=== PATIENT | male | born 1950 | race Caucasian/White ===

== ENCOUNTER 2020-01-10 08:14 | Outpatient (CLI) | payer MEDICARE ==
[2020-01-10] MEDS ORDERED: ASPI81TA45 PO (09:10)
[2020-01-10] MEDS ORDERED: MULT-252 PO (09:10)
[2020-01-10] MEDS ORDERED: METO50TA82 PO (09:10)
[2020-01-10] MEDS ORDERED: CETI10TA26 PO (09:10)
[2020-01-10] MEDS ORDERED: OMEG1CAP39 PO (09:10)
[2020-01-10] MEDS ORDERED: GLUC500T11 PO (09:10)
[2020-01-10] MEDS ORDERED: NAPR-685 PO (09:10)
[2020-01-10] MEDS ORDERED: LOSA100T14 PO (09:10)
[2020-01-10] MEDS ORDERED: DULO60CA7 PO (09:10)
[2020-01-10] MEDS ORDERED: ATOR40TA78 PO (09:10)
[2020-01-10] MEDS ORDERED: NALT50TA PO (09:10)
== END 2020-01-10 23:59 | disposition home or self-care (01) ==
LOC: STAR 08:14
PROVIDERS: ATTEND Orthopaedic Surgery
DX: Z02.9 Encounter for administrative examinations, unspecified (principal)

== ENCOUNTER 2020-01-13 07:13 | Observation (INO) | payer MEDICARE, OTHER ==
[2020-01-10 09:11] LABS: BASOPHILS # (AUTO) 0.05 x10^3/uL (0-0.1); BASOPHILS % (AUTO) 1 % (0-1); EOSINOPHILS # (AUTO) 0.27 x10^3/uL (0-0.4); EOSINOPHILS % (AUTO) 4 % (1-7); LYMPHOCYTES # (AUTO) 1.69 x10^3/uL (1-3.4); LYMPHOCYTES % (AUTO) 27 % (22-44); MD NO; MEAN CORPUSCULAR HEMOGLOBIN 31.3 pg (27.5-34.5); MEAN CORPUSCULAR VOLUME 94.7 fL (81-97); MEAN PLATELET VOLUME 8.2 fL (7.4-10.4); MONOCYTES # (AUTO) 0.52 x10^3/uL (0.2-0.8); MONOCYTES % (AUTO) 8 % (2-9); NEUTROPHILS # (AUTO) 3.73 x10^3/uL (1.8-6.8); NEUTROPHILS % (AUTO) 60 % (42-75); PLATELET COUNT 146 x10^3/uL (130-400); RED BLOOD COUNT 5.36 x10^6/uL (4.38-5.82); RED CELL DISTRIBUTION WIDTH 13.8 % (9.4-14.8)
[2020-01-10 09:19] LABS: CALCIUM 9.3 mg/dL (8.5-10.1); CHLORIDE 107 mmol/L (98-107)
[2020-01-10 09:26] LABS: ALANINE AMINOTRANSFERASE 36 U/L (12-78); ALBUMIN 3.8 g/dL (3.4-5.0); ALKALINE PHOSPHATASE 118 U/L (45-117); ANION GAP 4 mmol/L (5-15); BILIRUBIN,TOTAL 1.2 mg/dL (0.2-1.0); CREATININE 1.19 mg/dL (0.7-1.3); TOTAL PROTEIN 7.1 g/dL (6.4-8.2)
[~2020-01-13] VITALS: Ht 175.3 cm; Wt 96.0 kg
[~2020-01-13 07:13] MED LIST: ASPI81TA45 PO; ATOR40TA78 PO; CETI10TA26 PO; DULO60CA7 PO; EPINEPHRINE 1 MG/ML, 1ML ONE; FENTANYL PF 250 MCG/5ML ONE; GLUC500T11 PO; KETOROLAC 60 MG/2 ML ONE; LOSA100T14 PO; METO50TA82 PO; MIDAZOLAM 1 MG/ML, 2ML ONE; MULT-252 PO; NALT50TA PO; NAPR-685 PO; OMEG1CAP39 PO; ROPIvacaine/PF 0.2%, 20 ML ONE; SODIUM CHLORIDE 0.9% 50 ML ONE; TRANEXAMIC ACID 100 MG/ML, 10ML ONE
[2020-01-13] MEDS ORDERED: LACTATED RINGERS 1,000 ML IV SCH (07:56)
[2020-01-13] MEDS ORDERED: CHLORHEXIDINE 15 ML UDC MM ONE (08:00)
[2020-01-13] MEDS ORDERED: LIDOCAINE-MPF 1%, 2ML INFIL ONE (08:00)
[2020-01-13] MEDS ORDERED: SCOPOLAMINE 1MG PATCH TD ONE (08:00)
[2020-01-13] MEDS ORDERED: ROCURONIUM 10 MG/ML,10ML ONE (09:13)
[2020-01-13] MEDS ORDERED: SUCCINYLCHOLINE 20 MG/ML, 10ML ONE (09:13)
[2020-01-13] MEDS ORDERED: PROPOFOL 10 MG/ML, 20ML ONE (09:13)
[2020-01-13] MEDS ORDERED: CEFAZOLIN 1,000 MG ONE (09:13)
[2020-01-13] MEDS ORDERED: DEXAMETHASONE 4 MG/ML, 1ML ONE (09:13)
[2020-01-13] MEDS ORDERED: ONDANSETRON 2MG/ML, 2ML ONE (09:13)
[2020-01-13] MEDS: POTASSIUM CHLORIDE 20 MEQ in D5%-0.45% NACL 1,000 ML IV SCH ×2 (11:06→17:08)
[2020-01-13] MEDS ORDERED: OXYcodone 5 MG/5 ML ORAL.SOL UDC ONE (11:26)
[2020-01-13] MEDS ORDERED: FENTANYL PF 100 MCG/2ML ONE (11:26)
[2020-01-13] MEDS ORDERED: MEPERIDINE/PF 25MG/ML,1ML ONE (11:26)
[2020-01-13] MEDS ORDERED: OXYcodone IR 5MG TABLET PO PRN (11:30)
[2020-01-13] MEDS ORDERED: ALUMINUM/MAG/SIMETHICONE 30 ML UDC PO PRN (11:30)
[2020-01-13] MEDS ORDERED: MAGNESIUM HYDROXIDE 8%, 30ML UDC PO PRN (11:30)
[2020-01-13] MEDS ORDERED: BISACODYL 10 MG SUPP PR PRN (11:30)
[2020-01-13] MEDS ORDERED: MEPERIDINE/PF 25MG/0.5ML IVPush PRN (11:30)
[2020-01-13] MEDS ORDERED: HYDROmorphone 1 MG/ML, 1ML INJ IVPush PRN (11:30)
[2020-01-13] MEDS ORDERED: ONDANSETRON 2MG/ML, 2ML IVPush PRN (11:30)
[2020-01-13] MEDS ORDERED: SENNA/DOCUSATE TABLET PO PRN (11:30)
[2020-01-13] MEDS ORDERED: hydrALAzine 20 MG/ML, 1ML IV PRN (11:30)
[2020-01-13] MEDS ORDERED: POLYETHYLENE GLYCOL 17 GM PACKET PO PRN (11:30)
[2020-01-13] MEDS ORDERED: PROMETHAZINE 25 MG/ML, 1ML IVPush PRN (11:30)
[2020-01-13] MEDS ORDERED: OXYcodone 5 MG/5 ML ORAL.SOL UDC PO PRN (11:30)
[2020-01-13] MEDS: FENTANYL PF 100 MCG/2ML IV PRN ×2 (11:33→11:45)
[2020-01-13 13:58] VITALS: BP 97/65
[2020-01-13] MEDS: ACETAMINOPHEN 325 MG TABLET PO PRN ×2 (15:14→20:44)
[2020-01-13] MEDS: CEFAZOLIN PMX 1GM/50ML 50 ML IVPB SCH (17:08)
[2020-01-13] MEDS: ONDANSETRON 4 MG TABLET PO PRN (17:19)
[2020-01-13 19:25] VITALS: BP 95/60
[2020-01-13] MEDS: DOCUSATE 100 MG CAPSULE PO SCH (20:44)
[2020-01-14 01:13] VITALS: BP 114/65
[2020-01-14] MEDS: ACETAMINOPHEN 325 MG TABLET PO PRN ×2 (01:52→07:44)
[2020-01-14] MEDS: CEFAZOLIN PMX 1GM/50ML 50 ML IVPB SCH (01:56)
[2020-01-14 04:55] VITALS: BP 122/72
[2020-01-14 05:07] LABS: BASOPHILS # (AUTO) 0.06 x10^3/uL (0-0.1); BASOPHILS % (AUTO) 1 % (0-1); EOSINOPHILS # (AUTO) 0.04 x10^3/uL (0-0.4); EOSINOPHILS % (AUTO) 0 % (1-7); LYMPHOCYTES # (AUTO) 1.96 x10^3/uL (1-3.4); LYMPHOCYTES % (AUTO) 22 % (22-44); MD NO; MEAN CORPUSCULAR HEMOGLOBIN 31.2 pg (27.5-34.5); MEAN CORPUSCULAR HGB CONC 32.5 g/dL (33.2-36.2); MEAN PLATELET VOLUME 8.4 fL (7.4-10.4); MONOCYTES # (AUTO) 0.73 x10^3/uL (0.2-0.8); MONOCYTES % (AUTO) 8 % (2-9); NEUTROPHILS # (AUTO) 6.15 x10^3/uL (1.8-6.8); NEUTROPHILS % (AUTO) 69 % (42-75); PLATELET COUNT 122 x10^3/uL (130-400); RED BLOOD COUNT 4.26 x10^6/uL (4.38-5.82); RED CELL DISTRIBUTION WIDTH 13.9 % (9.4-14.8)
[2020-01-14] MEDS ORDERED: ASPIRIN 81 MG TABLET EC PO SCH (06:00)
[2020-01-14 07:21] VITALS: BP 114/62
[2020-01-14] MEDS: ONDANSETRON 4 MG TABLET PO PRN (07:44)
[2020-01-14] MEDS: DOCUSATE 100 MG CAPSULE PO SCH (08:00)
[2020-01-14] MEDS: POTASSIUM CHLORIDE 20 MEQ in D5%-0.45% NACL 1,000 ML IV SCH (12:00)
== END 2020-01-14 12:58 | disposition home or self-care (01) ==
LOC: ORIP 07:13 → INTOOBSV 07:13 → EDSTATUS 09:00 → 4NE 12:16 → DCLOUNGE 01-14 12:52
PROVIDERS: ADMIT Orthopaedic Surgery; ATTEND Orthopaedic Surgery
DX: Z03.818 Encounter for observation for suspected exposure to other biological agents ruled out (principal); M16.12 Unilateral primary osteoarthritis, left hip; M67.20 Synovial hypertrophy, not elsewhere classified, unspecified site; I10 Essential (primary) hypertension; G47.33 Obstructive sleep apnea (adult) (pediatric); Z96.642 Presence of left artificial hip joint; Z79.899 Other long term (current) drug therapy
CPT/HCPCS: 27130; 36415; 72170; 80053; 85025; 86850; 86900; 87081; 87635; 96365; 96366; 97161; 97166; C1713; C1776; G0378; J0171; J0330; J0690; J1100; J1885; J2175; J2250; J2405; J2704; J2795; J3010; J3480; J3490; J7120; Q0162

== ENCOUNTER → 2020-10-18 | Outpatient (CLI) | payer MEDICARE ==
[~2020-10-18] MED LIST changes: -CETI10TA26 PO; +CETI10TA76 PO; -EPINEPHRINE 1 MG/ML, 1ML ONE; -FENTANYL PF 250 MCG/5ML ONE; -KETOROLAC 60 MG/2 ML ONE; -MIDAZOLAM 1 MG/ML, 2ML ONE; -ROPIvacaine/PF 0.2%, 20 ML ONE; -SODIUM CHLORIDE 0.9% 50 ML ONE; -TRANEXAMIC ACID 100 MG/ML, 10ML ONE
[2020-10-18 12:11] LABS: BASOPHILS % (AUTO) 1 % (0-1); EOSINOPHILS % (AUTO) 3 % (1-7); LYMPHOCYTES % (AUTO) 28 % (22-44); MEAN CORPUSCULAR HEMOGLOBIN 31.1 pg (27.5-34.5); MEAN CORPUSCULAR HGB CONC 33.2 g/dL (33.2-36.2); MEAN PLATELET VOLUME 8.5 fL (7.4-10.4); MONOCYTES % (AUTO) 8 % (2-9); NEUTROPHILS % (AUTO) 60 % (42-75); PLATELET COUNT 160 x10^3/uL (130-400); RED BLOOD COUNT 5.14 x10^6/uL (4.38-5.82); RED CELL DISTRIBUTION WIDTH 13.4 % (9.4-14.8)
[2020-10-18 12:14] LABS: MD NO
[2020-10-18 12:20] LABS: ANION GAP 4 mmol/L (5-15); CALCIUM 9.1 mg/dL (8.5-10.1); CHLORIDE 107 mmol/L (98-107); CREATININE 1.22 mg/dL (0.7-1.3)
[2020-10-18 12:21] LABS: INTERNATIONAL NORMALIZED RATIO 0.98 (0.93-1.1); PROTHROMBIN TIME 10.5 Seconds (9.6-11.5)
[2020-10-18 12:22] LABS: MICROSCOPIC NOT IND
== END | disposition home or self-care (01) ==
LOC: RAD 10:56
PROVIDERS: ATTEND Anesthesiology
DX: Z01.89 Encounter for other specified special examinations (principal); M79.606 Pain in leg, unspecified
CPT/HCPCS: 36415; 71046; 80048; 81003; 85025; 85610; 85730; 93005